=== PATIENT | female | born 1950 | race Caucasian/White ===

== ENCOUNTER 2019-07-01 11:12 | Inpatient (IN) | payer OTHER ==
[~2019-07-01] VITALS: Ht 162.6 cm; Wt 66.8 kg
[2019-07-01 11:30] VITALS: BP 160/100
[2019-07-01] MEDS ORDERED: LIPITOR10 MG PO (11:32)
[2019-07-01] MEDS ORDERED: PRISTIQ50 M1 PO (11:32)
[2019-07-01 11:58] LABS: URINE BILIRUBIN NEGATIVE (Negative); URINE BLOOD NEGATIVE (Negative); URINE CLARITY CLEAR; URINE COLOR YELLOW; URINE GLUCOSE-RANDOM NEGATIVE (Negative); URINE KETONES TRACE (Negative); URINE LEUKOCYTES-REFLEX NEGATIVE (Negative); URINE NITRITE-REFLEX NEGATIVE (Negative); URINE PROTEIN 2+ (Negative); URINE UROBILINOGEN 0.2 E.U./dl (0.2-1.0)
[2019-07-01 12:05] LABS: ABSOLUTE LYMPHOCYTES 1.8 thou/uL (0.8-5.3); ABSOLUTE MONOCYTES 0.5 thou/uL (0.0-1.2); ABSOLUTE NEUTROPHILS 5.3 thou/uL (1.6-8.1); BASOPHILS 0.5 %; EOSINOPHILS 0.6 %; HEMATOCRIT 40.9 % (37.0-47.0); HEMOGLOBIN 14.2 gm/dL (12.0-15.0); MCH 31.1 pg (26.0-34.0); MCHC 34.6 g/dL (28.0-37.0); MONOCYTES 6.6 %; MPV 8.6 fl. (7.2-11.1); NUCLEATED RBCS 0 /100WBC; PLATELET COUNT* 386 thou/uL (150-400); POLYS 69.3 %; RBC 4.54 mil/uL (4.20-5.00); RDW-CV 13.1 % (10.5-14.5); WBC 7.7 thou/uL (4.0-11.0)
[2019-07-01 12:08] LABS: SQUAMOUS 4-10 Moderate /LPF (0-3)
[2019-07-01 12:10] LABS: BACTERIA-REFLEX None Seen /HPF (None Seen); CASTS None Seen /LPF (None Seen); CRYSTALS None Seen /LPF (None Seen); MUCUS >6 Heavy strn/LPF (None Seen); URINE RBC None Seen /HPF (0-2); URINE WBC-REFLEX None Seen /HPF (0-5)
[2019-07-01 12:15] LABS: CALCIUM 9.8 mg/dL (8.5-10.1); CREATININE 0.8 mg/dL (0.6-1.3); POTASSIUM 3.4 mmol/L (3.5-5.1)
[2019-07-01 12:19] LABS: ALBUMIN 4.3 g/dL (3.4-5.0); TOTAL BILIRUBIN 0.5 mg/dL (<0.1-1.0); TOTAL PROTEIN 8.8 g/dL (6.4-8.2)
--- NOTE | 2019-07-01 15:17 | EKG ---
[place] [address] ELECTROCARDIOGRAM REPORT Name: NICKO PRICE Room: [place] [address] ADM IN [facility]#: [id number] Admission: 07/01/19 Attend Phys: Garrett Sweeney Discharge: Date of : 52 Report #: [id number] THIS REPORT FOR: //name// [facility] ED Test Date: 2019-07-01 Test Time: 11:53:14 Pat Name: NICKO PRICE Department: Room: [facility] Gender: F Botany Technician: : 1950 Requested By: Ashely Quarles Order Number: [id number] MD: Dexter Garcia Measurements Intervals [place] Rate: 83 P: 50 AK: 148 QRS: 27 QRSD: 90 T: 98 QT: 392 QTc: 461 Interpretive Statements Sinus rhythm Borderline T abnormalities, lateral leads No previous ECG available for comparison Electronically Signed On 07-01-2019 15:17:06 CDT by Dexter Garcia [email or web address] <ELECTRONICALLY SIGNED> By: Dexter Garcia MD, [facility] 07/01/19 1517 1153 1153 Dexter Garcia MD, FACC /EPI
[2019-07-01 18:08] VITALS: BP 144/90
[2019-07-01 18:15] VITALS: BP 140/76
[2019-07-02 00:35] VITALS: BP 127/58
[2019-07-02 04:00] VITALS: BP 155/76
[2019-07-02 05:42] LABS: ABSOLUTE EOSINOPHILS 0.1 thou/uL (0.0-0.7); ABSOLUTE LYMPHOCYTES 2.3 thou/uL (0.8-5.3); ABSOLUTE MONOCYTES 0.6 thou/uL (0.0-1.2); ABSOLUTE NEUTROPHILS 2.8 thou/uL (1.6-8.1); BASOPHILS 0.3 %; HEMATOCRIT 35.6 % (37.0-47.0); HEMOGLOBIN 12.3 gm/dL (12.0-15.0); LYMPHOCYTES 39.4 %; MCH 31.2 pg (26.0-34.0); MCHC 34.6 g/dL (28.0-37.0); MCV 90.3 fL (80.0-100.0); MONOCYTES 9.5 %; MPV 8.2 fl. (7.2-11.1); NUCLEATED RBCS 0 /100WBC; PLATELET COUNT* 334 thou/uL (150-400); POLYS 48.8 %; RBC 3.95 mil/uL (4.20-5.00); RDW-CV 13.2 % (10.5-14.5); WBC 5.8 thou/uL (4.0-11.0)
[2019-07-02 06:31] LABS: ALBUMIN 3.2 g/dL (3.4-5.0); CALCIUM 8.3 mg/dL (8.5-10.1); CREATININE 0.8 mg/dL (0.6-1.3); POTASSIUM 4.6 mmol/L (3.5-5.1); TOTAL BILIRUBIN 0.5 mg/dL (<0.1-1.0); TOTAL PROTEIN 6.6 g/dL (6.4-8.2); TROPONIN-I LEVEL 0.33 ng/mL (<0.06)
[2019-07-02 08:00] VITALS: BP 154/81
[2019-07-02 08:19] LABS: AMP/METHAMP Negative (Negative); BARBITURATES Negative (Negative); BENZODIAZEPINES Negative (Negative); COCAINE Negative (Negative); METHADONE Negative (Negative); OPIATES Negative (Negative); PCP Negative (Negative); THC Negative (Negative)
[2019-07-02 11:30] VITALS: BP 142/86
--- NOTE | 2019-07-02 14:33 | EKG ---
[place] [address] ELECTROCARDIOGRAM REPORT Name: NICKO PRICE Room: [address] ADM IN [facility].R.#: [id number] Admission: 07/01/19 Attend Phys: Garrett Sweeney Discharge: Date of : 52 Report #: [id number] THIS REPORT FOR: //name// [facility] Test Date: 2019-07-02 Test Time: 09:15:31 Pat Name: NICKO LEWISBETH Department: Room: [address] Gender: F Return To Vendor: RT : 1950 Requested By: Garrett Melgar Order Number: [id number] MD: Dexter Garcia Measurements Intervals [place] Rate: 80 P: 55 IL: 148 QRS: 29 QRSD: 85 T: 124 QT: 376 QTc: 434 Interpretive Statements Sinus rhythm with short pr interval Abnormal R-wave progression, early transition Abnormal T, consider ischemia, lateral leads Minimal ST elevation, anterior leads Compared to ECG 07/01/2019 11:53:14 T-wave abnormality still present Electronically Signed On 07-02-2019 14:33:30 CDT by Dexter Garcia [email or web address] <ELECTRONICALLY SIGNED> By: Dexter Garcia MD, FACC 07/02/19 1433 4 4 Dexter Garcia MD, FACC /EPI
--- NOTE | 2019-07-02 14:44 | 2DMMODE ---
[place] [address] 2 D/M-MODE ECHOCARDIOGRAM Name: NICKO PRICE Room: [address] IN [facility]#: [id number] Admission: 07/01/19 Attend Phys: Garrett michel Sa Discharge: Date of : 52 Date of Service: 07/02/19 1444 Report #: [id number] THIS REPORT FOR: //name// APPROVED REPORT Study performed: 07/02/2019 10:09:28 EXAM: Comprehensive 2D, Doppler, and color-flow Echocardiogram Patient Location: In-Patient Room #: [facility] Status: routine BSA: 1.70 HR: 82 bpm BP: 154/81 mmHg Rhythm: NSR Other Information Study Quality: Excellent Indications Abnormal ECG Dyspnea Elevated Troponin 2D Dimensions IVSd: 12.00 (7-11mm) LVOT Diam: 21.20 (18-24mm) LVDd: 45.28 mm PWd: 10.82 (7-11mm) Ascending Ao: 29.42 (22-36mm) LVDs: 26.61 (25-40mm) Aortic Root: 30.43 mm Volumes Left Atrial Volume (Systole) LA ESV Index: 34.40 mL/m2 Aortic Valve AoV Peak Frank.: 1.22 m/s AO Peak Gr.: 5.98 mmHg LVOT Max P.11 mmHg AO Mean Gr.: 3.39 mmHg LVOT Mean P.37 mmHg LVOT Max V: 1.13 m/s AO V2 VTI: 22.16 cm LVOT Mean V: 0.70 m/s NALINI (VTI): 3.17 cm2 LVOT V1 VTI: 19.94 cm Mitral Valve E/A Ratio: 0.58 [place] [address] 2 D/M-MODE ECHOCARDIOGRAM Name: NICKO PRICE Room: [address] IN ..#: [id number] Admission: 07/01/19 Attend Phys: Garrett hamlin los Sa Discharge: Date of : 52 Date of Service: 07/02/19 1444 Report #: [id number] MV Decel. Time: 254.85 ms MV E Max Frank.: 0.75 m/s MV PHT: 73.91 ms MVA (PHT): 2.98 cm2 TDI E/Lateral E': 18.75 E/Medial E': 15.00 Medial E' Frank.: 0.05 m/s Lateral E' Frank.: 0.04 m/s Pulmonary Valve PV Peak Frank.: 1.37 m/s PV Peak Gr.: 7.53 mmHg Tricuspid Valve RAP Estimate: 5.00 mmHg TR Peak Gr.: 24.54 mmHg RVSP: 29.00 mmHg PA Pressure: 29.00 mmHg Left Ventricle The left ventricle is normal size. There is normal LV segmental wall motion. There is normal left ventricular wall thickness. Left ventricular systolic function is normal. The left ventricular ejection fraction is within the normal range. LVEF is 60-65%. Grade I - abnormal relaxation pattern. Right Ventricle The right ventricle is normal size. The right ventricular systolic function is normal. Atria Left atrium is mildly dilated. The right atrium size is normal. Aortic Valve The aortic valve is normal in structure. No aortic regurgitation is present. There is no aortic valvular stenosis. Mitral Valve There is mitral annular calcification. Trace mitral regurgitation. No evidence of mitral valve stenosis. Tricuspid Valve The tricuspid valve is normal in structure. Trace tricuspid regurgitation. estimated pa pressure 30 [place] [address] 2 D/M-MODE ECHOCARDIOGRAM Name: NICKO PRICE Room: [address]#: [id number] Admission: 07/01/19 Attend Phys: Garrett michel Sa Discharge: Date of : 52 Date of Service: 07/02/19 1444 Report #: [id number] Pulmonic valve is not well visualized. There is no pulmonic valvular regurgitation. Great Vessels The aortic root is normal in size. IVC is normal in size and collapses >50% with inspiration. Pericardium There is no pericardial effusion. <Conclusion> LVEF is 60-65%. Left atrium is mildly dilated. <ELECTRONICALLY SIGNED> By: Dexter Garcia MD, FACC 07/02/19 1444 1444 1444 Dexter Garcia MD, FACC /INF
--- NOTE | 2019-07-02 15:48 | CON ---
[address] [address] CONSULTATION Name: NICKO PRICE Room: [address] IN M.R.#: [id number] Admission: 07/01/19 Attend Phys: Garrett Sweeney Discharge: Date of : 52 Report #: [id number] THIS REPORT FOR: //name// CC: Garrett Watson MD CARDIOLOGY CONSULTATION HISTORY OF PRESENT ILLNESS: This is a 68-year-old single white female who I was asked to see in the hospital today after she was noted to have an abnormal troponin. The patient has no previous history of heart disease. She is not very active at this time. She apparently did have a stress test years ago. She does note about a year ago that her primary care physician noticed a heart murmur. He recommended that she see a wire annealer, but she never followed up on the advice. She was doing well until about 5 days ago when she developed nausea and vomiting. The next day, she felt somewhat better. However 2 days ago, she again had nausea and vomiting. She finally came to the hospital yesterday afternoon and was admitted. She denied any abdominal pain, fever. She had no blood in her vomit. She denied any diarrhea or blood in her stools. She denied anyone else in her family having nausea and vomiting. She denies it being related to any food. She denies a history of chest pain, shortness of breath, palpitations, syncope or peripheral edema. PAST MEDICAL HISTORY: She has had no surgical procedures. She does have a history of hyperlipidemia. She has a history of depression. MEDICATIONS: Include Lipitor, Pristiq, and Fosamax once a week. ALLERGIES: She has no known drug allergies. FAMILY HISTORY: Her mother had a stroke, had a pacemaker. Her father had a brain aneurysm. SOCIAL HISTORY: She is single. 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 She lives in [facility]. No smoking or alcohol abuse. REVIEW OF SYSTEMS: She has no history of stroke, asthma, liver disease. Her son developed kidney failure requiring a kidney transplant. 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 No history of cancer, chronic skin condition. PHYSICAL EXAMINATION: GENERAL: Revealed a middle-aged female, appeared in no distress. VITAL SIGNS: She had a blood pressure of 130/60, pulse 70. She is afebrile. HEENT: She was anicteric. Conjunctivae pink. Mucous membranes moist. NECK: Neck veins were not distended. No carotid bruits[place] [address] CONSULTATION Name: NICKO PRICE Room: [address] [place] [facility]#: [id number] Admission: 07/01/19 Attend Phys: Garrett Sweeney Discharge: Date of : 52 Report #: [id number] CHEST: Clear to auscultation. CARDIOVASCULAR: Regular rate and rhythm, grade 2 systolic ejection murmur at left sternal border. ABDOMEN: Soft. EXTREMITIES: Had no edema. Posterior tibial pulse 2+ bilaterally. SKIN: Cool and dry. NEUROLOGIC: Nonfocal. LYMPH: No adenopathy. MUSCULOSKELETAL: No joint effusion. DIAGNOSTIC DATA: Her ECG on admission showed a sinus rhythm. There are nonspecific T-wave changes on the monitor last night. She had a 7-beat run of wide complex tachycardia consistent with nonsustained ventricular tachycardia. LABORATORY AND RADIOGRAPHIC DATA: In the Emergency Room yesterday, she actually had a CT scan of the abdomen and pelvis with IV contrast that showed no acute abnormality. She had a chest x-ray that showed normal heart size, clear lung bojorquez. Sodium 142, creatinine 0.8. Liver function studies were normal. Lipase is 85. Her troponin on admission was 0.26, this morning at 0.33. BNP 793. White blood cell count 12.3. Her urinalysis with 2+ protein, trace ketones, moderate squamous cells, no WBCs, no bacteria. IMPRESSION AND RECOMMENDATIONS: 1. Nausea and vomiting. Suspect gastroenteritis. 2. Nonsustained ventricular tachycardia. Recommend echocardiogram. 3. Non-myocardial infarction related to borderline elevation of troponin. We would consider outpatient stress testing. 4. Hyperlipidemia. The patient is on a statin drug. <ELECTRONICALLY SIGNED> By: Dexter Garcia MD, [facility] 07/02/19 1548 0901 [id number] Garcia MD, FACC /nt
[2019-07-02 16:00] VITALS: BP 164/85
[2019-07-03] VITALS: BP 145/73
[2019-07-03 04:00] VITALS: BP 145/79
[2019-07-03 05:25] LABS: CHOLESTEROL 126 mg/dL (<200); HDL CHOLESTEROL 41 mg/dL (>40); LDL CHOLESTEROL 65 mg/dL (<100); TC:HDL 3.1 Ratio (Not establshd); TRIGLYCERIDE 102 mg/dL (<150); VLDL 20 mg/dL (<40)
[2019-07-03 05:28] LABS: SERUM ASSESSMENT CLEAR
[2019-07-03 08:45] VITALS: BP 170/81
[2019-07-03] MEDS ORDERED: BAYER CHEWABLE81 MG PO (10:56)
[2019-07-03] MEDS ORDERED: TYLENOL WITH CO1 TA1 PO (11:14)
[2019-07-03 11:15] VITALS: BP 170/81
[2019-07-03] MEDS ORDERED: NON-ASPIRIN EX500 M1 PO (11:24)
[2019-07-03 11:37] VITALS: BP 132/75
[2019-07-20] MEDS ORDERED: LIPITOR 20 MG T20 M1 PO (11:33)
[2019-07-20] MEDS ORDERED: PRISTIQ50 M1 PO (11:33)
[2019-07-20] MEDS ORDERED: ALENDRONATE SOD70 MG PO (11:34)
[2019-07-20] MEDS ORDERED: PEPCID20 MG PO (13:22)
[2019-07-20] MEDS ORDERED: ZOFRAN ODT4 MG DISSOLVE (13:22)
== END 2019-07-03 14:11 | disposition home or self-care (01) | DRG 281 ==
LOC: M.ERS 11:12 → M.TBA-ER 13:06 → M.2W 13:06
PROVIDERS: Internal Medicine Cardiovascular Disease; Nurse Practitioner Family; ADMIT Family Medicine
DX: I21.4 Non-ST elevation (NSTEMI) myocardial infarction (principal); I47.2 Ventricular tachycardia; K52.9 Noninfective gastroenteritis and colitis, unspecified; E78.5 Hyperlipidemia, unspecified; F32.9 Major depressive disorder, single episode, unspecified; M81.0 Age-related osteoporosis without current pathological fracture; E87.6 Hypokalemia; A05.9 Bacterial foodborne intoxication, unspecified; Z79.82 Long term (current) use of aspirin; Z82.49 Family history of ischemic heart disease and other diseases of the circulatory system; Z82.3 Family history of stroke; Z79.899 Other long term (current) drug therapy

== ENCOUNTER → 2019-07-18 | Outpatient (CLI) | payer OTHER, MEDICARE ==
[~2019-07-18] MED LIST: ALENDRONATE SOD70 MG PO; BAYER CHEWABLE81 MG PO; LIPITOR 20 MG T20 M1 PO; LIPITOR10 MG PO; NON-ASPIRIN EX500 M1 PO; PEPCID20 MG PO; PRISTIQ50 M1 PO; TYLENOL WITH CO1 TA1 PO; ZOFRAN ODT4 MG DISSOLVE
--- NOTE | 2019-07-18 17:02 | CARDNUC ---
[place] [address] CARDIAC NUCLEAR IMAGING REPORT Name: NICKO PRICE Room: [facility]#: [id number] Admission: 07/18/19 Attend Phys: Jennifer Matt Discharge: Date of : 52 Date of Service: 07/18/19 170 Report #: [id number] THIS REPORT FOR: //name// APPROVED REPORT Study performed: 07/18/2019 12:30:00 Indication: Troponin elevation Patient Location: Out-Patient Stress Tech: Jewels Martinez Stress Nurse: Beatris Styles RN Ht: 5 ft 4 in Wt: 133 lbs BSA: 1.64 m2 BMI: 22.82 Medical History Medical History: Hyperlipidemia Medications: asa-81 Allergies: codeine Cardiac Risk Factors: age, hyperlipidemia Previous Cardiac Procedures: none Exercise History: Physically active Resting Data Rest SPECT myocardial perfusion imaging was performed in supine position 30 minutes following the intravenous injection of 10.7 mCi of Tc-99m Sestamibi. Time of rest injection: 12:55 The images were gated to evaluate regional wall motion and calculate left ventricular ejection fraction. Administration Route: IV Administration Site: Left Arm Exercise Stress At peak stress, the patient was injected intravenously with 32.3mCi of Tc-99m Sestamibi. Time of stress injection: 14:25 Administration Route: IV Administration Site: Left Arm Heart Rate at time of stress injection: 132 bpm. Patient continued to exercise for 1 minute(s). Gated Stress SPECT was performed 30 minutes after stress injection. The images were gated to evaluate regional wall motion and calculate left [place] [address] CARDIAC NUCLEAR IMAGING REPORT Name: NICKO PRICE Room: [facility]#: [id number] Admission: 07/18/19 Attend Phys: Jennifer Matt Discharge: Date of : 52 Date of Service: 07/18/19 1702 Report #: [id number] Prone imaging was performed. Stress Test Details Stress Test: Exercise stress testing was performed using a Jose protocol. HR Max Heart Rate (APMHR): 153 bpm Resting HR: 87 bpm Target HR (85% APMHR): 130 bpm Max HR Achieved: 135 bpm % of APMHR: 88 Recovery HR: 104 bpm BP Resting BP: 152/84 mmHg Max BP: 191/82 mmHg Recovery BP: 163/85 mmHg ECG Resting ECG: Sinus Rhythm, LVH with repolarization abnormality Stress ECG: Sinus Tachycardia, LVH with repolarization abnormality ST Change: None Arrhythmia: None Recovery ECG: Sinus Rhythm, LVH with repolarization abnormality Recovery ST Change: None Recovery Arrhythmia: None Clinical Reason for Termination: Dyspnea, Fatigue Exercise duration: 9 min 4 sec Exercise capacity: 10.26 METs Functional Aerobic Impairment 88% The patient exhibited normal exercise tolerance on the standard Jose protocol. She had no significant cardiac symptoms. Stress ECG Conclusion Baseline 12-lead EKG shows sinus rhythm. There is left ventricular hypertrophy with repolarization abnormalities noted. EKGs obtained during and post exercise showed sinus rhythm and sinus tachycardia with persistent repolarization changes from LVH. There were no stress-induced arrhythmias. Study Quality Study: Good Artifact: [place] [address] CARDIAC NUCLEAR IMAGING REPORT Name: NICKO PRICE Room: [facility]#: [id number] Admission: 07/18/19 Attend Phys: Jennifer Matt Discharge: Date of : 52 Date of Service: 07/18/19 1702 Report #: [id number] Study Data At rest, the left ventricular ejection fraction was 73%.. Post stress, the left ventricular ejection was 65%.. TID = 1.00. Perfusion Normal left ventricular perfusion. Wall Motion Normal left ventricular wall motion. Nuclear Conclusion ECG Findings: non-diagnostic Clinical Findings: negative for ischemia Nuclear Findings: negative for ischemia Exercise Capacity: normal Left Ventricular Function: normal Risk Study: low Myocardial perfusion images show no defect to suggest infarct or ischemia. Left ventricular systolic function appears normal on gated studies. This is a low risk study. <Conclusion> Baseline 12-lead EKG shows sinus rhythm. There is left ventricular hypertrophy with repolarization abnormalities noted. EKGs obtained during and post exercise showed sinus rhythm and sinus tachycardia with persistent repolarization changes from LVH. There were no stress-induced arrhythmias. <ELECTRONICALLY SIGNED> By: Jaylon Vee MD, FACC 07/18/191701 01 01 Jaylon Vee MD, FACC /INF
== END ==
LOC: M.NUC 07-03 16:10
DX: R79.89 Other specified abnormal findings of blood chemistry (principal); E78.5 Hyperlipidemia, unspecified